=== PATIENT | male | born 1955 | race Caucasian/White ===

== ENCOUNTER 2016-08-15 13:18 | Emergency (ER) | payer SELFPAY ==
[2016-08-15 13:29] VITALS: TEMP 96.9; BMI 27.4
[2016-08-15 13:39] LABS: AUTOMATED BASOPHIL 2.2 % (0-2); AUTOMATED EOSINOPHIL 2.4 % (0-5); AUTOMATED LYMPH 32.6 % (17-44); AUTOMATED MONOCYTE 8.9 % (3-10); AUTOMATED NEUTROPHIL 53.9 % (45-76)
[2016-08-15] MEDS: NITROGLYCERINE 0.4 MG TAB SL SCH ×3 (13:39→14:36)
[2016-08-15 13:49] LABS: BLOOD UREA NITROGEN 14 MG/DL (9-20); CALCIUM 9.1 MG/DL (8.4-10.2); CALCULATED OSMOLALITY 271 MOs/Kg (270-290); CHLORIDE 103 mEq/L (98-107); GLUCOSE 89 MG/DL (70-99); SODIUM LEVEL 141 mEq/L (137-146); TOTAL PROTEIN 7.7 G/DL (6.3-8.2)
[2016-08-15 14:06] LABS: FREE T3 2.93 pg/mL (2.77-5.27); FREE T4 0.93 ng/dL (0.78-2.19)
--- NOTE | 2016-08-15 14:16 | DIRPT ---
CLINICAL DATA: Substernal chest pain. EXAM: PORTABLE CHEST 1 VIEW COMPARISON: 06/18/2016 FINDINGS: The heart size and mediastinal contours are within normal limits. Fairly low lung volumes with mild bibasilar atelectasis. There is no evidence of pulmonary edema, consolidation, pneumothorax, nodule or pleural fluid. The visualized skeletal structures are unremarkable. IMPRESSION: No active disease. Bibasilar atelectasis. Electronically Signed By: Puneet Duran M.D. On: 08/15/2016 14:14
[2016-08-15 14:20] VITALS: BP 102/65
--- NOTE | 2016-08-15 14:31 | EDPRACDOC ---
- General Information Chief Complaint: Chest Pain Stated Complaint: CHEST PAIN Time Seen by Provider: 08/15/16 13:25 Information Source: Patient Mode of Arrival: Car Home Medications: Home Medications Aspirin/Calcium Carbonate/Mag [Aspirin Buffered 325 mg Tab] 325 mg PO DAILY Levothyroxine [Synthroid, Levoxyl] 100 mcg PO 0600 #100 tablet 01/22/16 Acetaminophen [Mapap] 650 mg PO Q4-6H PRN 08/15/16 Famotidine [Pepcid] 20 mg PO DAILY #30 tablet 08/15/16 Levothyroxine Sodium [Synthroid] 150 mcg PO DAILY #90 tab 08/15/16 Allergies/Adverse Reactions: Allergies Allergy/AdvReac Type Severity Reaction Status Date / Time No Known Allergies Allergy Verified 06/19/16 00:50 - History of Present Illness Onset: 1030 am HPI: PT SAID THAT HE HAS HAD CP FOR THE PAST FEW DAYS. HE SAID THAT HE HAS HAD SOME HEART BURN WELL. HE RAN OUT OF HIS REGULAR SYNTHROID, SO HE'S BEEN TAKING AN OLD RX. PT HAD A STRESS TEST IN JANUARY THAT WAS NEGATIVE. PT DID TAKE AN ASA TODAY. Chest Pain Location: Reports: Substernal Pain Radiation: Reports: None Symptoms Occur: Reports: Suddenly Cardiac Risk Factors: Reports: None Cardiac History of: Reports: Stress Test PE Risk Factors: Reports: None Medications within 24 Hours: Reports: Aspirin Pain Came On: Reports: Suddenly Pain Status: Present Now Pain Description: Reports: Stabbing Pain Severity: Mild Pain Worsens With: Reports: Nothing Pain Improves With: Reports: Nothing Associated Signs and Symptoms: Reports: None ED Past Medical History - Patient Medical History Cardiac History: Reports: Cardiac Catheterization, Stress Test (10-12 years ago. ). Denies: Coronary Artery Disease, Hypertension, Heart Attack Respiratory History: Denies: COPD Psychological History: Denies: Depression, Substance Use Disorder Systemic History: Reports: Hypothyroidism. Denies: Cancer Surgical History: Reports: Cardiac Catheterization (10 YRS AGO AT [facility] ()) - Family Medical History Reports: Cardiac Disorders - Social Medical History Smoking Status: Former smoker (currently uses smokeless tobacco- dips snuff) Social History: Denies: Substance Use Disorder ETOH: None Substance Abuse: None Lives In: Home EDM Review of Systems - Review of Systems ROS Negative Except as Marked: Yes All systems reviewed and were negative except as marked Cardiovascular: Chest Pain - Physical Exam Constitutional: Alert (Awake), No apparent distress Oriented to: Time, Person, Place Last recorded Vital Signs: Last Vital Signs Temp 96.9 F L 08/15/16 13:27 Pulse 66 08/15/16 14:19 Resp 16 08/15/16 14:19 BP 102/65 08/15/16 14:19 Pulse Ox 95 08/15/16 14:19 Oxygen Pulse Oxygen Saturation 95 O2 Device Room Air Oxygen Flow Rate Fraction of Inspired Oxygen ( FIO2) - HEENT Head: Normal ( normocephalic) Eye Exam: Normal (PERRL, EOMI, Sclera white) Oropharynx: Normal (Pharynx:Moist without exudate,Gums-no swelling) ENT EAC: Normal TMJ: Normal Nose: No Symptoms Reported (septum midline) Neck: Normal (FROM, trachea at midline) - Respiratory/Cardiovascular Respiratory: Normal - CTA (BBS clear to auscultation without adventitious sounds ) Cardiovascular: Normal (RRR without murmur, gallop or rub) - GI Auscultation: Normal (NABS) Palpation: Normal (Soft,No rebound or guarding, non distended) Tenderness: Non tender Corrales's Sign: Negative - Musculoskeletal Back: Normal (Non-Tender) Extremities: Normal (Normal tone, Pulses 2+ No cyanosis or edema, FROM) - Integumentary Skin: Normal, Warm, Dry Lymphatics: Normal (no adenopathy) - Neurologic Memory Impaired: Normal Motor Function: Normal (Normal tone, Pulses 2+ No cyanosis or edema, FROM) Cranial Nerve: Normal (CN II-X11 intact sensation, strength 5/5) Cerebellar: Normal Mood Description: Normal Thought: Coherent Perception: Normal - Action ASA given in the ED: No - Results 08/15/16 13:26 08/15/16 13:26 WBC 5.2 xk/uL (3.8-10.8) 08/15/16 13:26 RBC 4.82 xM/uL (4.70-6.10) 08/15/16 13:26 Hgb 14.8 g/dL (14.0-18.0) 08/15/16 13:26 Hct 43.2 % (42-52) 08/15/16 13:26 MCV 90 fL (80-94) 08/15/16 13:26 MCH 30.8 pg (27-32) 08/15/16 13:26 MCHC 34.4 g/dl (33-36) 08/15/16 13:26 RDW 14.0 % (11.5-14.5) 08/15/16 13:26 Plt Count 228 xk/uL (130-400) 08/15/16 13:26 MPV 7.0 fL (7.4-10.4) L 08/15/16 13:26 Neut % (Auto) 53.9 % (45-76) 08/15/16 13:26 Lymph % (Auto) 32.6 % (17-44) 08/15/16 13:26 Orange % (Auto) 8.9 % (3-10) 08/15/16 13:26 Eos % (Auto) 2.4 % (0-5) 08/15/16 13:26 Baso % (Auto) 2.2 % (0-2) H 08/15/16 13:26 Absolute Neuts (auto) 2.76 xk/uL (1.7-8.2) 08/15/16 13:26 Absolute Lymphs (auto) 1.66 xk/uL (0.65-4.75) 08/15/16 13:26 PT 9.9 SEC (9.2-11.2) 08/15/16 13:26 INR 1.0 08/15/16 13:26 APTT 25.0 SEC (22-35) 08/15/16 13:26 D-Dimer Quant (PE/DVT) 234 ng/mL (<500) 08/15/16 13:26 Sodium 141 mEq/L (137-146) 08/15/16 13:26 Potassium 3.9 mEq/L (3.5-5.1) 08/15/16 13:26 Chloride 103 mEq/L (98-107) 08/15/16 13:26 Carbon Dioxide 29 mMOL/L (22-33) 08/15/16 13:26 Anion Gap 13 mEq/L (8-16) 08/15/16 13:26 BUN 14 MG/DL (9-20) 08/15/16 13:26 Creatinine 0.80 MG/DL (0.66-1.25) 08/15/16 13:26 Estimated GFR (MDRD) > 60 mL/min (>=60) 08/15/16 13:26 Glucose 89 MG/DL (70-99) 08/15/16 13:26 Calculated Osmolality 271 MOs/Kg (270-290) 08/15/16 13:26 Calcium 9.1 MG/DL (8.4-10.2) 08/15/16 13:26 Total Bilirubin 0.5 MG/DL (0.2-1.3) 08/15/16 13:26 AST 42 IU/L (17-59) 08/15/16 13:26 ALT 55 IU/L (21-72) 08/15/16 13:26 Alkaline Phosphatase 51 IU/L (50-160) 08/15/16 13:26 Troponin I < 0.01 ng/mL (<.04) 08/15/16 13:26 Total Protein 7.7 G/DL (6.3-8.2) 08/15/16 13:26 Albumin 4.3 G/DL (3.5-5.0) 08/15/16 13:26 TSH 53.00 uIU/mL (0.5-4.67) H 08/15/16 13:26 Free T4 0.93 ng/dL (0.78-2.19) 08/15/16 13:26 Free T3 2.93 pg/mL (2.77-5.27) 08/15/16 13:26 Lab Results 08/15/16 08/15/16 08/15/16 13:26 13:26 13:26 WBC 5.2 RBC 4.82 Hgb 14.8 Hct 43.2 MCV 90 MCH 30.8 MCHC 34.4 RDW 14.0 Plt Count 228 MPV 7.0 L Neut % (Auto) 53.9 Lymph % (Auto) 32.6 Orange % (Auto) 8.9 Eos % (Auto) 2.4 Baso % (Auto) 2.2 H Absolute Neuts (auto) 2.76 Absolute Lymphs (auto) 1.66 PT 9.9 INR 1.0 APTT 25.0 D-Dimer Quant (PE/DVT) 234 Sodium Potassium Chloride Carbon Dioxide Anion Gap BUN Creatinine Estimated GFR (MDRD) Glucose Calculated Osmolality Calcium Total Bilirubin AST ALT Alkaline Phosphatase Troponin I Total Protein Albumin TSH Free T4 Free T3 08/15/16 13:26 WBC RBC Hgb Hct MCV MCH MCHC RDW Plt Count MPV Neut % (Auto) Lymph % (Auto) Orange % (Auto) Eos % (Auto) Baso % (Auto) Absolute Neuts (auto) Absolute Lymphs (auto) PT INR APTT D-Dimer Quant (PE/DVT) Sodium 141 Potassium 3.9 Chloride 103 Carbon Dioxide 29 Anion Gap 13 BUN 14 Creatinine 0.80 Estimated GFR (MDRD) > 60 Glucose 89 Calculated Osmolality 271 Calcium 9.1 Total Bilirubin 0.5 AST 42 ALT 55 Alkaline Phosphatase 51 Troponin I < 0.01 Total Protein 7.7 Albumin 4.3 TSH 53.00 H Free T4 0.93 Free T3 2.93 Laboratory Results - last 24 hr 08/15/16 08/15/16 08/15/16 13:26 13:26 13:26 WBC 5.2 RBC 4.82 Hgb 14.8 Hct 43.2 MCV 90 MCH 30.8 MCHC 34.4 RDW 14.0 Plt Count 228 MPV 7.0 L Neut % (Auto) 53.9 Lymph % (Auto) 32.6 Orange % (Auto) 8.9 Eos % (Auto) 2.4 Baso % (Auto) 2.2 H Absolute Neuts (auto) 2.76 Absolute Lymphs (auto) 1.66 PT 9.9 INR 1.0 APTT 25.0 D-Dimer Quant (PE/DVT) Sodium 141 Potassium 3.9 Chloride 103 Carbon Dioxide 29 Anion Gap 13 BUN 14 Creatinine 0.80 Estimated GFR (MDRD) > 60 Glucose 89 Calculated Osmolality 271 Calcium 9.1 Total Bilirubin 0.5 AST 42 ALT 55 Alkaline Phosphatase 51 Troponin I < 0.01 Total Protein 7.7 Albumin 4.3 TSH 53.00 H Free T4 0.93 Free T3 2.93 08/15/16 13:26 WBC RBC Hgb Hct MCV MCH MCHC RDW Plt Count MPV Neut % (Auto) Lymph % (Auto) Orange % (Auto) Eos % (Auto) Baso % (Auto) Absolute Neuts (auto) Absolute Lymphs (auto) PT INR APTT D-Dimer Quant (PE/DVT) 234 Sodium Potassium Chloride Carbon Dioxide Anion Gap BUN Creatinine Estimated GFR (MDRD) Glucose Calculated Osmolality Calcium Total Bilirubin AST ALT Alkaline Phosphatase Troponin I Total Protein Albumin TSH Free T4 Free T3 Laboratory Results 08/15/16 13:26 08/15/16 13:26 - EKG EKG #1 EKG Time: 13:25 -: Yes EKG interpreted by me Rate: bpm: 65 [place]: Normal Rhythm: NSR Block: None Hypertrophy: None ST: Normal Comparison: 06/18/16 - Diagnostic Imaging Chest Image interpreted by: Radiologist No active disease. Bibasilar atelectasis. Decision Time to Discharge: 14:34 - Departure Yes I personally saw and evaluated the patient. Disposition: Home Condition: Fair Final Diagnosis: Atypical chest pain, Hypothyroidism Instructions: Chest Pain (ED), Hypothyroidism (ED) Education/Counseling Given To: Patient Education/Counseling Given Regarding: Diagnosis, Treatment, Follow Up Referrals: None,No Provider [Primary Care Provider] - One Week Pablo Francois MD [Staff Physician] - One Week Andrew Cao MD [Staff Provider No Admit] - One Week Prescriptions: Famotidine [Pepcid] 20 mg PO DAILY #30 tablet Levothyroxine Sodium [Synthroid] 150 mcg PO DAILY #90 tab
[2016-08-15 15:00] VITALS: PULSE 59
== END 2016-08-15 14:58 | disposition home or self-care (01) ==
LOC: ED 13:18
DX: R07.89 Other chest pain (principal); E03.9 Hypothyroidism, unspecified
CPT/HCPCS: 36415; 71010; 80053; 84439; 84443; 84481; 84484; 85025; 85379; 85610; 85730; 93005; 99284; J3490